=== PATIENT | female | born 1945 | race Caucasian/White ===

== ENCOUNTER 2019-10-10 17:49 | Emergency (ER) | payer MEDICARE, MEDICAID ==
[~2019-10-10] VITALS: Ht 162.6 cm; Wt 123.0 kg
[~2019-10-10 17:49] MED LIST: AMLO1TAB12 PO; ASPI-920 PO; CHOL10002 PO; DEXL60CA3 PO; FERR325T28 PO; GUAI600T45 PO; HYDR-4383 PO; LUBI8CAP PO; MAGN250T11 PO; METF500T PO; MIRA50TA PO; MULT-38 PO; PARO30TA73 PO; PIOG30TA10 PO; PRAM0.253 PO
--- NOTE | 2019-10-10 18:04 | NUR ---
PT STATES SHE IS DIABETIC AND WOULD LIKE TO EAT SOON. ADVISED HER WE CAN GET THAT AFTER HER X-RAY IF OKAYS.
[2019-10-10] MEDS ORDERED: HYDROcodone/acetaminophen 5mg/325mg tablet PO ONE (18:10)
[2019-10-10] MEDS ORDERED: ondansetron 4mg rapidly disintigrating tab PO ONE (18:10)
[2019-10-10 19:08] VITALS: BP 106/60
== END 2019-10-10 19:09 | disposition home or self-care (01) ==
LOC: ER 17:50
DX: R07.89 Other chest pain (principal); E11.9 Type 2 diabetes mellitus without complications; F41.9 Anxiety disorder, unspecified; Z98.890 Other specified postprocedural states; Z88.1 Allergy status to other antibiotic agents; Z79.82 Long term (current) use of aspirin; W01.0XXA Fall on same level from slipping, tripping and stumbling without subsequent striking against object, initial encounter; Y93.89 Activity, other specified; Y92.481 Parking lot as the place of occurrence of the external cause; Y99.8 Other external cause status
CPT/HCPCS: 71250; 74176; 99285

== ENCOUNTER 2021-12-11 22:10 | Emergency (ER) | payer MEDICARE, MEDICAID ==
[~2021-12-11] VITALS: Ht 162.6 cm; Wt 127.7 kg
[~2021-12-11 22:10] MED LIST changes: +ALBU8.5H17 IH; -AMLO1TAB12 PO; +CHLO25TA10 PO; -CHOL10002 PO; -FERR325T28 PO; -GUAI600T45 PO; -LUBI8CAP PO; -MAGN250T11 PO; -METF500T PO; -MULT-38 PO; +PARO20TA6 PO; -PARO30TA73 PO; -PIOG30TA10 PO; +PIOG45TA65 PO; -PRAM0.253 PO; +PRAM0.5T12 PO; +PREG50CA64 PO; +VALS80TA32 PO
[2021-12-12] MEDS ORDERED: methylPREDNISolone sod succ 125mg/2ml vial IV ONE (10:35)
[2021-12-12] MEDS ORDERED: ipratropium/albuterol 3ml nebule NEB ONE (10:35)
[2021-12-12] MEDS ORDERED: normal saline 1000ML IV soln IVB ONE (10:35)
[2021-12-12] MEDS ORDERED: CefTRIAXone 2gm/D5W 50ml BAG 50 ML IV ONE (10:35)
[2021-12-12 11:15] LABS: BASOPHILS % (AUTO) 0.6 % (0-1); EOSINOPHILS # (AUTO) 0.2 X10'3 (0-0.9); EOSINOPHILS % (AUTO) 2.5 % (0-6); LYMPHOCYTES # (AUTO) 0.6 X10'3 (1.1-4.8); LYMPHOCYTES % (AUTO) 9.6 % (21-51); MEAN CORPUSCULAR HEMOGLOBIN 30.8 PG (27.0-31.0); MEAN CORPUSCULAR HGB CONC 33.4 g/dL (33.0-36.5); MEAN CORPUSCULAR VOLUME 92.1 FL (78-98); MEAN PLATELET VOLUME 7.4 FL (7.4-10.4); MONOCYTES # (AUTO) 0.5 X10'3 (0-0.9); MONOCYTES % (AUTO) 7.6 % (2-12); NEUTROPHILS # (AUTO) 5.1 X10'3 (1.8-7.7); NEUTROPHILS % (AUTO) 79.7 % (42-75); PLATELET COUNT 230 X10'3 (140-440); RED BLOOD COUNT 4.55 X10'6 (4.20-5.60); RED CELL DISTRIBUTION WIDTH 14.5 % (11.5-14.5); WHITE BLOOD COUNT 6.4 X10'3 (4.5-11.0)
[2021-12-12] MEDS ORDERED: morphine 4 MG/ML inj SYRINge IV ONE (11:35)
[2021-12-12 11:39] LABS: ALANINE AMINOTRANSFERASE 23 U/L (12-78); ALBUMIN 3.4 G/DL (3.4-5.0); ALBUMIN/GLOBULIN RATIO 0.9 (1.1-1.5); ALKALINE PHOSPHATASE 63 IU/L (46-116); ANION GAP 6 (8-16); ASPARTATE AMINO TRANSFERASE 19 U/L (10-37); BILIRUBIN,TOTAL 0.9 MG/DL (0.1-1.0); BLOOD UREA NITROGEN 28 MG/DL (7-18); BUN/CREATININE RATIO 21.4 (6.6-38.0); CALCIUM 8.9 MG/DL (8.5-10.1); CHLORIDE 104 MMOL/L (99-107); CREATININE 1.31 MG/DL (0.40-0.90); GLUCOSE 111 MG/DL (70-104); POTASSIUM 3.4 MMOL/L (3.5-5.1); SODIUM 142 MMOL/L (135-145); TOTAL CARBON DIOXIDE 32.1 MMOL/L (24-32); TOTAL PROTEIN 7.4 G/DL (6.4-8.2); eGFR 39 ML/MIN
[2021-12-12] MEDS ORDERED: ALBU6.7H9 INH (12:06)
[2021-12-12] MEDS ORDERED: PRED20TA PO (12:06)
[2021-12-12] MEDS ORDERED: CEPH250T PO (12:06)
[2021-12-12] MEDS ORDERED: DOXY100C77 PO (12:06)
[2021-12-12 13:19] VITALS: BP 146/63
== END 2021-12-12 13:25 | disposition home or self-care (01) ==
LOC: ER 22:11
DX: J18.1 Lobar pneumonia, unspecified organism (principal); Z20.822 Contact with and (suspected) exposure to COVID-19; I11.0 Hypertensive heart disease with heart failure; I50.9 Heart failure, unspecified; E11.9 Type 2 diabetes mellitus without complications; Z91.041 Radiographic dye allergy status; R06.02 Shortness of breath
CPT/HCPCS: 36415; 71045; 80053; 83880; 85025; 87635; 94640; 96361; 96365; 96375; 99284; C9803; J0696; J2270; J2930; J7030; 94760